=== PATIENT | female | born 1970 | race Caucasian/White ===

== ENCOUNTER → 2020-12-21 | Outpatient (CLI) | payer OTHER ==
[2020-12-23 11:11] LABS: HPV 16 Negative (Negative); HPV 18 Negative (Negative); HPV OTHER HR TYPES Negative (Negative)
== END | disposition home or self-care (01) ==
LOC: LAB 16:39 → LAB SHORT 16:39
PROVIDERS: Obstetrics & Gynecology
DX: Z12.4 Encounter for screening for malignant neoplasm of cervix (principal)
CPT/HCPCS: 87624; G0123

== ENCOUNTER 2024-02-05 12:26 | Emergency (ER) | payer OTHER ==
[~2024-02-05] VITALS: Ht 160 cm; Wt 35.4 kg
[2024-02-05] MEDS ORDERED: NS 1,000 ML IV SCH (12:45)
[2024-02-05 13:25] LABS: BASOPHILS ABSOLUTE AUTO 0.04 K/mm3 (0.00-0.23); BASOPHILS PERCENT AUTO 0 % (0-2); EOSINOPHILS ABSOLUTE AUTO 0.13 K/mm3 (0.00-0.68); EOSINOPHILS PERCENT AUTO 1 % (0-6); Hematocrit 45.2 % (33.0-51.0); Hemoglobin 15.3 g/dL (11.5-16.0); IMMATURE GRAN ABSOLUTE AUTO 0.05 K/mm3 (0.00-0.10); IMMATURE GRAN PERCENT AUTO 0 % (0-1); LYMPHOCYTES ABSOLUTE AUTO 1.95 K/mm3 (0.84-5.20); LYMPHOCYTES PERCENT AUTO 13 % (21-46); MONOCYTES ABSOLUTE AUTO 1.36 K/mm3 (0.16-1.47); MONOCYTES PERCENT AUTO 9 % (4-13); Mean Corpuscular HGB 32.4 pg (26.0-34.0); Mean Corpuscular HGB Conc 33.8 g/dL (31.5-36.5); Mean Corpuscular Volume 96 fL (80-100); Mean Platelet Volume 8.6 fL (9.1-12.4); NEUTROPHILS PERCENT AUTO 76 % (41-73); Platelet Count 310 K/mm3 (150-400); RDW Coefficient Variation 12.4 % (11.7-14.2); Red Blood Cell Count 4.72 M/mm3 (3.80-5.20); White Blood Cell Count 14.63 K/mm3 (4.00-11.30)
[2024-02-05 13:46] LABS: Albumin, Blood 3.6 g/dL (3.4-5.0); Bilirubin, Total 0.3 mg/dL (0.1-1.0); Bun/Creatinine Ratio 19.4 (12.0-20.0); Calcium, Blood 9.7 mg/dL (8.5-10.1); Creatinine, Blood 0.72 mg/dL (0.40-1.00); Globulin, Blood 3.6 g/dL (2.2-4.0); Magnesium, Blood 2.3 mg/dL (1.6-2.4); Potassium, Blood 3.9 mmol/L (3.5-5.5); Total Protein, Blood 7.2 g/dL (6.4-8.2)
[2024-02-05 18:00] VITALS: BP 146/116
[2024-02-05] MEDS ORDERED: MORP20L PO (18:00)
[2024-02-05] MEDS ORDERED: ONDA4ODT SL (18:00)
== END 2024-02-05 18:15 | disposition home or self-care (01) ==
LOC: ER 12:26
PROVIDERS: Physician Assistant
DX: R63.4 Abnormal weight loss (principal); Z68.1 Body mass index [BMI] 19.9 or less, adult; C15.9 Malignant neoplasm of esophagus, unspecified; Z88.1 Allergy status to other antibiotic agents
CPT/HCPCS: 80053; 83735; 85025; 96360; 96361; 99283-25; J7030

== ENCOUNTER → 2024-05-26 | Outpatient (CLI) | payer OTHER ==
[~2024-05-26] MED LIST: Cephalexin250 MG/5 M PO; MORP20L PO; MS Contin15 MG PO; ONDA4ODT MM; ONDA4ODT SL; OXYC5
[2024-05-26 20:13] LABS: Albumin, Blood 2.8 g/dL (3.4-5.0); Albumin/Globulin Ratio 0.8 (0.8-1.8); Bilirubin, Total 0.2 mg/dL (0.1-1.0); Bun/Creatinine Ratio 44.7 (12.0-20.0); Calcium, Blood 9.6 mg/dL (8.5-10.1); Creatinine, Blood 0.63 mg/dL (0.40-1.00); Globulin, Blood 3.6 g/dL (2.2-4.0); Potassium, Blood 4.1 mmol/L (3.5-5.5); Total Protein, Blood 6.4 g/dL (6.4-8.2)
[2024-05-27 14:26] LABS: BASOPHILS ABSOLUTE AUTO 0.01 K/mm3 (0.00-0.23); BASOPHILS PERCENT AUTO 0 % (0-2); EOSINOPHILS ABSOLUTE AUTO 0.01 K/mm3 (0.00-0.68); EOSINOPHILS PERCENT AUTO 0 % (0-6); Hematocrit 35.2 % (33.0-51.0); Hemoglobin 11.6 g/dL (11.5-16.0); IMMATURE GRAN ABSOLUTE AUTO 0.01 K/mm3 (0.00-0.10); IMMATURE GRAN PERCENT AUTO 0 % (0-1); LYMPHOCYTES ABSOLUTE AUTO 0.21 K/mm3 (0.84-5.20); LYMPHOCYTES PERCENT AUTO 6 % (21-46); MONOCYTES ABSOLUTE AUTO 0.93 K/mm3 (0.16-1.47); MONOCYTES PERCENT AUTO 27 % (4-13); Mean Corpuscular HGB 38.5 pg (26.0-34.0); Mean Corpuscular Volume 117 fL (80-100); Mean Platelet Volume 12.5 fL (9.1-12.4); NEUTROPHILS ABSOLUTE AUTO 2.22 K/mm3 (1.96-9.15); NEUTROPHILS PERCENT AUTO 66 % (41-73); Platelet Count 87 K/mm3 (150-400); RDW Coefficient Variation 18.1 % (11.7-14.2); RDW Standard Deviation 77.4 fL (35.1-46.3); Red Blood Cell Count 3.01 M/mm3 (3.80-5.20); White Blood Cell Count 3.39 K/mm3 (4.00-11.30)
== END ==
LOC: LAB 15:46 → LAB SHORT 15:46
PROVIDERS: Internal Medicine Hematology & Oncology; Radiology Radiation Oncology
DX: C15.4 Malignant neoplasm of middle third of esophagus (principal); Z51.0 Encounter for antineoplastic radiation therapy
CPT/HCPCS: 80053; 85025

== ENCOUNTER 2024-06-01 14:04 | Emergency (ER) | payer OTHER ==
[~2024-06-01] VITALS: Ht 160 cm; Wt 34.5 kg
[~2024-06-01 14:04] MED LIST changes: -Cephalexin250 MG/5 M PO; -MS Contin15 MG PO; -ONDA4ODT MM; -OXYC5
[2024-06-01 15:12] LABS: BASOPHILS ABSOLUTE AUTO 0.01 K/mm3 (0.00-0.23); BASOPHILS PERCENT AUTO 0 % (0-2); EOSINOPHILS ABSOLUTE AUTO 0.01 K/mm3 (0.00-0.68); EOSINOPHILS PERCENT AUTO 0 % (0-6); Hematocrit 38.2 % (33.0-51.0); Hemoglobin 12.6 g/dL (11.5-16.0); IMMATURE GRAN ABSOLUTE AUTO 0.01 K/mm3 (0.00-0.10); IMMATURE GRAN PERCENT AUTO 0 % (0-1); LYMPHOCYTES ABSOLUTE AUTO 0.39 K/mm3 (0.84-5.20); LYMPHOCYTES PERCENT AUTO 9 % (21-46); MONOCYTES ABSOLUTE AUTO 0.96 K/mm3 (0.16-1.47); MONOCYTES PERCENT AUTO 21 % (4-13); Mean Corpuscular HGB 38.8 pg (26.0-34.0); Mean Corpuscular Volume 118 fL (80-100); Mean Platelet Volume 10.6 fL (9.1-12.4); NEUTROPHILS ABSOLUTE AUTO 3.17 K/mm3 (1.96-9.15); NEUTROPHILS PERCENT AUTO 70 % (41-73); Platelet Count 161 K/mm3 (150-400); RDW Coefficient Variation 19.1 % (11.7-14.2); RDW Standard Deviation 82.3 fL (35.1-46.3); Red Blood Cell Count 3.25 M/mm3 (3.80-5.20); White Blood Cell Count 4.55 K/mm3 (4.00-11.30)
[2024-06-01 15:32] LABS: Albumin/Globulin Ratio 0.8 (0.8-1.8); Bilirubin, Total 0.2 mg/dL (0.1-1.0); Bun/Creatinine Ratio 43.5 (12.0-20.0); Calcium, Blood 9.5 mg/dL (8.5-10.1); Creatinine, Blood 0.64 mg/dL (0.40-1.00); Globulin, Blood 3.6 g/dL (2.2-4.0); Potassium, Blood 3.9 mmol/L (3.5-5.5); Total Protein, Blood 6.6 g/dL (6.4-8.2)
[2024-06-01] MEDS ORDERED: OXYC5 (15:57)
[2024-06-01] MEDS ORDERED: Lactated Ringer's 1,000 ML IV ONE (17:35)
[2024-06-01] MEDS ORDERED: HYDROmorphone HCl/Pf 1MG SYR IV ONE ×2 (17:35→21:15)
[2024-06-01 18:34] LABS: Free Thyroxine 1.01 ng/dL (0.70-1.60)
[2024-06-01 18:36] LABS: Thyroid Stimulating Hormone 0.206 uIU/mL (0.360-4.800)
[2024-06-01] MEDS ORDERED: MS Contin15 MG PO (19:28)
[2024-06-01 19:30] VITALS: BP 123/81
[2024-06-01 20:09] LABS: Source, Urine Clean Catch
[2024-06-01 20:15] LABS: Appearance, Urine Hazy (Clear); Bilirubin, Urine Neg (Neg); Blood, Urine Neg (Neg); Glucose Qualitative, Urine Neg (Neg); Ketones, Urine Neg (Neg); Leukocyte Esterase, Urine 1+ (Neg); Nitrite, Urine Neg (Neg); Protein, Urine 1+ (Neg); Urobilinogen, Urine NORM (Normal)
[2024-06-01 20:34] LABS: Color, Urine Pale Yellow (P-Yellow)
[2024-06-01 20:36] LABS: Amorphous Light (0-Heavy); Bacteria Many /hpf; Squamous Epithelial Cells Many /hpf (Few); White Blood Cells, Urine 50-100 /hpf (0-5)
[2024-06-01] MEDS ORDERED: ONDA4ODT MM (20:59)
[2024-06-01] MEDS ORDERED: Cephalexin250 MG/5 M PO (20:59)
== END 2024-06-01 21:21 | disposition home or self-care (01) ==
LOC: ER 14:04
PROVIDERS: Physician Assistant; Student in an Organized Health Care Education/Training Program
DX: E86.0 Dehydration (principal); N30.00 Acute cystitis without hematuria; R07.9 Chest pain, unspecified; R13.10 Dysphagia, unspecified; C15.9 Malignant neoplasm of esophagus, unspecified; Z88.1 Allergy status to other antibiotic agents; Z79.899 Other long term (current) drug therapy
CPT/HCPCS: 71046; 71260; 74177; 80053; 81001; 84439; 84443; 84484; 85025; 87086; 93005; 93010; 96361; 96374-59; 96376-59; 99285-25; J1171; J7120; Q9967